=== PATIENT | female | born 1935 | race Caucasian/White ===

== ENCOUNTER → 2016-10-21 17:01 | Outpatient (CLI) | payer MEDICARE, OTHER ==
[2015-09-11 11:31] VITALS: BMI 22.0
[~2016-10-21 17:01] MED LIST: BETAPACE 80 MG80 MG PO; MACROBID100 MG PO; NORCO 7.5/325 T1 TA1 PO; SYNTHROID125 MCG PO; XARELTO20 MG PO; ZANAFLEX4 MG PO
== END | disposition home or self-care (01) ==
LOC: D.MAMMO 14:00
DX: Z12.31 Encounter for screening mammogram for malignant neoplasm of breast (principal)

== ENCOUNTER → 2018-07-02 09:37 | Outpatient (CLI) | payer MEDICARE, OTHER ==
[2015-09-11 11:31] VITALS: BMI 22.0
== END | disposition home or self-care (01) ==
LOC: D.OPS 09:37
DX: D50.9 Iron deficiency anemia, unspecified (principal); Z01.812 Encounter for preprocedural laboratory examination

== ENCOUNTER 2018-10-01 10:00 | Outpatient (CLI) | payer MEDICARE, OTHER ==
[2015-09-11 11:31] VITALS: BMI 22.0
== END 2018-10-01 10:30 | disposition home or self-care (01) ==
LOC: D.MAMMO 10:00
PROVIDERS: ATTEND Family Medicine
DX: Z12.31 Encounter for screening mammogram for malignant neoplasm of breast (principal)